=== PATIENT | female | born 1970 | race Caucasian/White ===

== ENCOUNTER → 2016-09-06 | Outpatient (CLI) | payer BC | LOC: LAB 07:32 | DX: R19.7 Diarrhea, unspecified (principal) | CPT/HCPCS: 87045; 87046; 89055 ==

== ENCOUNTER → 2016-11-22 | Outpatient (CLI) | payer BC ==
[2016-11-22 11:25] LABS: HEMOGLOBIN 13.1 gm/dl (12.3-15.3); RED BLOOD COUNT 4.21 M/UL (4.00-5.10); WHITE BLOOD COUNT 8.7 K/UL (4.5-11.0)
[2016-11-22 11:38] LABS: BUN/CREATININE RATIO 22 (0-10)
== END ==
LOC: LAB 09:54
PROVIDERS: Internal Medicine Medical Oncology
DX: C50.912 Malignant neoplasm of unspecified site of left female breast (principal)
CPT/HCPCS: 80053; 85025

== ENCOUNTER → 2021-12-21 | Outpatient (CLI) | payer BC ==
[~2021-12-21] MED LIST: PRILOSEC OTC20 MG PO; ROSADAN 0.75%1 EACH TP; TAMOXIFEN CITRA20 MG PO; VITAMIN D32000 UNI1 PO; ZOLOFT50 MG PO
[2021-12-21 07:58] LABS: HEMOGLOBIN 14.7 gm/dl (12.3-15.3); RED BLOOD COUNT 4.85 M/UL (4.00-5.10); WHITE BLOOD COUNT 9.9 K/UL (4.5-11.0)
[2021-12-21 08:31] LABS: BUN/CREATININE RATIO 22 (0-10)
[2021-12-22 07:10] LABS: HIV AB/P24 AG SCREEN Non Reactive (Non Reactive)
[2021-12-22 09:14] LABS: ESTRADIOL 14.5 pg/mL (.); PROGESTERONE 0.4 ng/mL (.); TESTOSTERONE, SERUM 3 ng/dL (4-50); VITAMIN D, 25-HYDROXY 35.6 ng/mL (30.0-100.0)
[2021-12-22 11:14] LABS: RHEUMATOID ARTHRITIS FACTOR <10.0 IU/mL (<14.0)
== END ==
LOC: EROP 07:19
PROVIDERS: Nurse Practitioner Family
DX: N32.81 Overactive bladder (principal); R00.0 Tachycardia, unspecified; Z68.32 Body mass index [BMI] 32.0-32.9, adult; Z85.3 Personal history of malignant neoplasm of breast
CPT/HCPCS: 80053; 80061; 82607; 82670; 83001; 83036; 84144; 84403; 84443; 85025; 86431; 87389